=== PATIENT | female | born 1985 | race Caucasian/White ===

== ENCOUNTER 2017-02-05 23:09 | Emergency (ER) | payer BC, OTHER ==
[~2017-02-05] VITALS: Ht 157.5 cm; Wt 74.8 kg
[~2017-02-05 23:09] MED LIST: BACTRIM DS TAB1 EACH PO; DIFLUCAN150 MG PO; NORCO 5-325 TA1 EACH PO; PYRIDIUM100 MG PO
[2017-02-05 23:48] LABS: HEMATOCRIT 37.5 % (37.0-47.0); HEMOGLOBIN 12.7 gm/dL (12.0-15.0); MCV 85.4 fL (80.0-100.0); RBC 4.39 mil/uL (4.20-5.00); RDW 13.8 % (10.5-14.5); WBC 6.3 thou/uL (4.0-11.0)
[2017-02-05 23:49] LABS: CALCIUM 8.4 mg/dL (8.5-10.1); CREATININE 1.1 mg/dL (0.6-1.3); POTASSIUM 3.5 mmol/L (3.5-5.1)
[2017-02-05] MEDS ORDERED: BENADRYL25 MG PO (23:52)
[2017-02-05] MEDS ORDERED: PREDNISONE 20 M20 MG PO (23:52)
[2017-02-05] MEDS ORDERED: PEPCID20 MG PO (23:52)
[2017-02-05 23:53] LABS: INR 1.2; PROTIME 12.5 Seconds (9.3-11.4)
[2017-02-06] MEDS ORDERED: KEFLEX500 MG PO (00:06)
[2017-02-06 00:14] VITALS: BP 126/67
== END 2017-02-06 00:15 | disposition home or self-care (01) ==
LOC: ER 23:09
PROVIDERS: Physician Assistant
DX: T37.0X5A Adverse effect of sulfonamides, initial encounter (principal); Y92.89 Other specified places as the place of occurrence of the external cause